=== PATIENT | male | born 1965 | race African-American/Black ===

== ENCOUNTER 2018-10-03 17:29 | Observation (INO) ==
[2018-10-03] MEDS ORDERED: ASPIRIN PO ONE ×2 (17:37→17:49)
[2018-10-03] MEDS ORDERED: NITROGLYCERIN SL ONE (17:50)
--- NOTE | 2018-10-03 17:52 | PROVIDER DOCUMENTATION ---
HPI-Chest Pain - General Chief Complaint: Chest Pain Stated Complaint: CHEST PAIN Time Seen by Provider: 10/03/18 17:45 Source: patient Allergies/Adverse Reactions: Patient Allergies Allergy/AdvReac Type Severity Reaction Status Date / Time No Known Allergies Allergy Verified 05/07/18 06:35 Home Medications: Home Medication List Medication Instructions Recorded Confirmed Last Taken Type Pantoprazole [Protonix] 40 mg PO DAILY@0700 #30 tab 02/20/17 05/07/18 Unknown Rx Metformin [Glucophage] 1,000 mg PO BID 11/18/17 05/07/18 Unknown History ATORVAstatin [Lipitor] 20 mg PO DAILY 11/26/17 05/07/18 Unknown History Amlodipine Besylate 10 mg PO DAILY 11/26/17 05/07/18 Unknown History Ciprofloxacin HCl [Cipro] 500 mg PO BID #20 tab 05/07/18 Unknown Rx Meloxicam [Mobic] 15 mg PO DAILY PRN #30 tab 05/07/18 Unknown Rx - History of Present Illness-CP Nature of Presenting Problem: 52 YOM PRESENTS WITH CP THAT BEGAN YESTERDAY AM. HE DESCRIBES THE PAIN SHARP AND RADIATES TO HIS L ARM CAUSING IT TO FEEL NUMB. HE DENIES ASSOCIATED SYMPTOMS WITH THE PAIN INCLUDING: SOB, N/V, SWEATING, COUGH, FEVER, CHILLS. Location: reports: substernal Chest Pain Radiation: reports: arms (L) Quality of Pain: reports: sharp Severity in ED: moderate Onset/Duration: 24 hours ago (YESTERDAY AM) Timing: still present Context/Activities at Onset: reports: none Modifying Factors: improves with: nothing Associated Symptoms: reports: denies symptoms Nitro Today/Relief: no nitro taken today Aspirin Treatment Today: 325 mg x 1, provided by ED Similar Symptoms Previously?: No Recently Seen Here or By Another Healthcare Provider: No Review of Systems - Adult - REVIEW OF SYSTEMS - ADULT Constitutional: reports: no symptoms reported. denies: see HPI, chills, fever, fatique, night sweats, weight gain, weight loss, other Eyes: reports: no symptoms reported. denies: see HPI, discharge, dry eyes, decreased vision, blurred vision, double vision, eye pain, redness, other Ears, Nose, Mouth & Throat: reports: no symptoms reported. denies: see HPI, ear discharge, ear pain, hearing loss, tinnitus, epistaxis, sinus problem, nose pain, loose teeth, mouth/dental pain, mouth swelling, hoarseness, throat pain, throat swelling, other Cardiovascular: reports: see HPI, chest pain. denies: no symptoms reported, edema, heart murmur, irregular heart rate, orthopnea, palpitations, poor circulation, PND, syncope, other Respiratory: reports: no symptoms reported. denies: see HPI, chronic cough, cough, dyspnea on exertion, excessive sputum production, hemoptysis, pleurisy, shortness of breath, wheezing, other Gastrointestinal: reports: no symptoms reported. denies: see HPI, abdominal pain, hematemesis, constipation, diarrhea, difficulty swallowing, frequent heartburn, nausea, poor appetite, rectal bleeding, vomiting, other Genitourinary: reports: no symptoms reported. denies: see HPI, dysuria, disc harge, frequency, flank pain, frequent UTI's, hematuria, hesitency, incontinence, urinary retention, urgency, other Musculoskeletal: reports: no symptoms reported. denies: see HPI, bone pain, back pain, frequent leg cramps, joint pain, joint swelling, muscle aches, muscle weakness, neck pain, other Integumentary: reports: no symptoms reported. denies: see HPI, hives, hair loss, itching, mole changes, nail changes, rash, skin sores/ulcer, skin t hickening, other Neurological: reports: no symptoms reported. denies: see HPI, ataxia, dizziness/vertigo, headache/migraines, loss of balance, numbness, paresthesia, seizure, slurred speech, syncope, tremors, other Psychiatric: reports: no symptoms reported. denies: see HPI, anxiety, anti- depressant use, alcohol/drug dependence, depression, emotional problems, insomnia, panic attacks, suicidal thoughts, other Endocrine: reports: no symptoms reported. denies: see HPI, change in skin pigment, excessive sweating, goiter, cold intolerance, heat intolerance, increased hunger, increased thirst, polyuria, other Hematologic/Lymphatic: reports: no symptoms reported. denies: see HPI, blood clots, easy bruising, low blood count, lymphedema, prolonged bleeding, swollen lymph nodes, transfusions, other Allergic/Immunologic: reports: no symptoms reported. denies: see HPI, allergic reactions, allergic rhinitis, asthma, eczema, food allergy, frequent infections, hay fever, hives, positive PPD, urticaria, other Past History - Adult - PAST MEDICAL HISTORY-ADULT Review of Records: reports: Old Records Reviewed, Nursing Assessment Review, Social history reviewed & non-contributory. Major Childhood Illnesses: reports: denies history Cardiovascular: reports: HTN Respiratory: reports: denies history Gastrointestinal: reports: GERD, other (liver congestion) Obstetrical/Gynecological: reports: denies history Genitourinary: reports: prostatitis Musculoskeletal: reports: denies history Neurological: reports: denies history Endocrine/Immune: reports: Diabetes Other Conditions: reports: denies history - PRIOR SURGERIES/PROCEDURES Surgical/Procedure History: reports: none - IMMUNIZATION STATUS Childhood Immunizations: See Nurse Assessment Flu Vaccine: See Nurse Assessment - FAMILY HISTORY Family History: reviewed, not pertinent Physical Exam-General - PHYSICAL EXAM-ADULT Initial Vital Signs Reviewed: Yes - CONSTITUTIONAL General Appearance: appears well, alert, no apparent distress - EYES Eyes: PERRL/EOMI - HEAD, EARS, NOSE, MOUTH & THROAT HENMT: normocephalic/atraumatic, moist mucous membranes, normal ENT inspection - NECK Neck: non-tender, full range of motion, supple - RESPIRATORY Respiratory: chest non-tender, lungs clear, normal breath sounds, no pleuratic chest pain, no respiratory distress, no accessory muscle use - CARDIOVASCULAR Cardiovascular: normal peripheral pulses, regular rate, rhythm, no edema, no gallop, no JVD, no murmur - GASTROINTESTINAL (ABDOMEN) Abdominal Exam: normal bowel sounds, non tender, soft - LYMPHATIC Lymphatic: no adenopathy - MUSCULOSKELETAL Back Exam: normal inspection, no CVA tenderness, no vertebral tenderness Extremity: normal range of motion, non-tender, normal gait, normal inspection - SKIN Integumentary: normal color, normal turgor, warm/dry - NEUROLOGIC Neurologic: grossly normal - PSYCHIATRIC Psych/Mental Status: normal mood/affect, oriented x 3 - HEART Score HEART Score: History: Moderately Suspicious HEART Score: ECG: Normal HEART Score: Age: 45-65 Years HEART Score: Risk Factors for Atherosclerotic Disease: > or = 3 Risk Factors or History of Atherosclerotic Disease HEART Score: Troponin: < or = Normal Limit Total HEART Score:: 4 Progress - PLAN OF CARE/RESULTS Progress/Plan/Lab Results: Vital Signs - 8 hr 10/03/18 17:36 10/03/18 18:09 Temperature 98 F 98.7 F Pulse Rate 85 75 Respiratory Rate 18 19 Blood Pressure 135/90 137/85 O2 Sat by Pulse Oximetry 96 100 Laboratory Results - last 24 hr 10/03/18 10/03/18 10/03/18 17:56 17:56 17:56 WBC RBC Hgb Hct MCV MCH MCHC RDW Std Deviation Plt Count MPV Immature Gran % (Auto) Neut % (Auto) Lymph % (Auto) [place] % (Auto) Eos % (Auto) Baso % (Auto) Immature Gran # (Auto) Neut # (Auto) Lymph # (Auto) [place] # (Auto) Eos # (Auto) Baso # (Auto) PT INR PTT (Actin FS) D-Dimer, Quantitative Sodium 140 Potassium 4.2 Chloride 103 Carbon Dioxide 24 L Anion Gap 14 BUN 14 Creatinine 1.1 Estimated GFR/1.73 m2 > 60 BUN/Creatinine Ratio 13 Glucose 160 H Calculated Osmolality 283 Calcium 9.4 Magnesium Creatine Kinase 88 Troponin T < 0.010 [id number]-[id number] Pept 10/03/18 10/03/18 10/03/18 17:56 17:56 17:56 WBC 6.95 RBC 5.12 Hgb 15.6 Hct 46.1 MCV 90.0 MCH 30.5 MCHC 33.8 RDW Std Deviation 13.3 Plt Count 246 MPV 10.2 Immature Gran % (Auto) 0.3 Neut % (Auto) 61.5 Lymph % (Auto) 30.6 [place] % (Auto) 6.3 Eos % (Auto) 1.0 Baso % (Auto) 0.3 Immature Gran # (Auto) 0.02 Neut # (Auto) 4.27 Lymph # (Auto) 2.13 [place] # (Auto) 0.44 Eos # (Auto) 0.07 Baso # (Auto) 0.02 PT 12.7 INR 0.91 PTT (Actin FS) 30.9 D-Dimer, Quantitative 0.29 Sodium Potassium Chloride Carbon Dioxide Anion Gap BUN Creatinine Estimated GFR/1.73 m2 BUN/Creatinine Ratio Glucose Calculated Osmolality Calcium Magnesium Creatine Kinase Troponin T Naq-Q-Gohzujbelen Pept 10/03/18 10/03/18 17:56 17:56 WBC RBC Hgb Hct MCV MCH MCHC RDW Std Deviation Plt Count MPV Immature Gran % (Auto) Neut % (Auto) Lymph % (Auto) [place] % (Auto) Eos % (Auto) Baso % (Auto) Immature Gran # (Auto) Neut # (Auto) Lymph # (Auto) [place] # (Auto) Eos # (Auto) Baso # (Auto) PT INR PTT (Actin FS) D-Dimer, Quantitative Sodium Potassium Chloride Carbon Dioxide Anion Gap BUN Creatinine Estimated GFR/1.73 m2 BUN/Creatinine Ratio Glucose Calculated Osmolality Calcium Magnesium 1.5 Creatine Kinase Troponin T Ufi-[id number]-Povjeymaigm Pept 72 Orders Category Date Time Status Saline Loc NOW Care 10/03/18 17:32 Active CHEST-2 VIEWS [RAD] Stat Exams 10/03/18 17:32 Completed BASIC METABOLIC PANEL [CHEM] Stat Lab 10/03/18 17:56 Completed CBC WITH ELECTRONIC DIFF [HEME] Stat Lab 10/03/18 17:56 Completed CK PROFILE [SP CHEM] Stat Lab 10/03/18 17:56 Completed D-DIMER [COAG] Stat Lab 10/03/18 17:56 Completed MAGNESIUM [CHEM] Stat Lab 10/03/18 17:56 Completed PRO B-NATRIURETIC PEPTIDE Stat Lab 10/03/18 17:56 Completed PROTIME WITH INR [COAG] Stat Lab 10/03/18 17:56 Completed PTT [COAG] Stat Lab 10/03/18 17:56 Completed TROPONIN T Stat Lab 10/03/18 17:56 Completed Aspirin Med 10/03/18 17:37 Discontinued 325 mg PO NOW ONE Aspirin Med 10/03/18 17:49 Discontinued 325 mg PO NOW ONE Magnesium Sulfate 2 gm/S.w.i. Med 10/03/18 18:37 Discontinued 2 gm in 50 ml IV NOW Nitroglycerin Sl [Nitroglycerin] Med 10/03/18 17:50 Discontinued 0.4 mg SL NOW ONE EKG [EKG] Stat Ther 10/03/18 17:32 Ordered 1835: PT REPORTS CP STOPPED WITH ONE DOSE OF NTG. HE IS RELUCTANT TO STAY IN PATIENT FOR FURTHER W/U. HE REQUEST TIME TO THINK ABOUT IT. Result Diagrams: 10/03/18 17:56 10/03/18 17:56 - EKG 1 Time of EKG reading by physician:: 17:44 EKG Read and Signed by:: Franklyn Bonilla EKG Interpretation (*Must complete 3 of following elements*): Abnormal Rate: 74 Rhythm: NSR [place]: normal QRS: normal [place] Interval: normal ST Wave: non-specific ST changes Prior EKG Comparison: unchanged from prior, no prior EKG - XRAY 1 XRAY Study: Chest Impression: Normal, See EMR Report (CHEST-2 VIEWS - 10/03/2018 INDICATION: CP COMPARISON: 05/07/2018 FINDINGS: The lungs are normally expanded and clear. Heart size and mediastinal contours are normal. No pneumothorax or pleural effusion. Small calcified granuloma in the left midlung. IMPRESSION: Negative exam.) - CONSULTS/PCP/HOSPITALIST Notification #1 *Consult/PCP/Hospitalist*: DR DESOUZA Time Discussed: 18:54 Consult Disposition: Admit Departure - Departure Date of Disposition Decision: 10/03/18 Time of Disposition Decision: 18:53 DIAGNOSIS: Chest pain Disposition: ADMITTED INPATIENT 09 Certified Medical Emergency: Emergent Condition: Stable Referrals and Follow-Ups: None,PCP [Primary Care Provider] - - Critical Care Note This patient required my direct & personal management of CC.: No Attestation - Physician/ SE Attestation Patient care was provided by Advanced Practice Provider:: Yes Advanced Practice Provider:: Hansa Maloney Advanced Practice Provider documentation review:: The Mid-level provider documentation, treatment plan and medical decision making was reviewed by the physician who agrees with all treatment and medical decision making by the MLP. The physician spent face to face time with patient:: No Advanced Practice Provider documentation review:: Supervising physician onsite and consulted in the evaluation and care of this patient. The physician did not have a face to face encounter with the patient.
[2018-10-03 18:11] LABS: BASO# 0.02 X1000 (0.0-0.2); BASO% 0.3 % (0.0-0.8); EOS# 0.07 X1000 (0.0-0.7); HEMATOCRIT 46.1 % (42.0-52.0); HEMOGLOBIN 15.6 g/dL (14.0-18.0); IMM GRAN# 0.02 X1000 (0.0-0.04); IMM GRAN% 0.3 % (0.0-0.5); LYMPH# 2.13 X1000 (1.2-3.4); LYMPH% 30.6 % (20.5-51.1); MCH 30.5 PG (27-31); MCHC 33.8 g/dL (33-37); MONO# 0.44 X1000 (0.11-0.59); MONO% 6.3 % (1.7-9.3); MPV 10.2 FL (7.4-10.4); NEUT# 4.27 X1000 (1.4-6.5); NEUT% 61.5 % (42.2-75.2); PLT 246 X1000 (130-400); RBC 5.12 XMIL (4.7-6.1); RDW 13.3 % (11.5-14.5); WBC 6.95 X1000 (4.8-10.8)
--- NOTE | 2018-10-03 18:17 | Diag Imaging Result Doc PS360 ---
CHEST-2 VIEWS - 10/03/2018 INDICATION: CP COMPARISON: 05/07/2018 FINDINGS: The lungs are normally expanded and clear. Heart size and mediastinal contours are normal. No pneumothorax or pleural effusion. Small calcified granuloma in the left midlung. IMPRESSION: Negative exam. Electronically signed by Werner Marshall 10/03/2018 6:15 PM
[2018-10-03 18:21] LABS: INR 0.91; PROTIME 12.7 Seconds (11.0-16.0)
[2018-10-03 18:22] LABS: PTT 30.9 Seconds (22.3-41.8)
[2018-10-03] MEDS ORDERED: MAGNESIUM SULFATE 2 GM/S.W.I. 2 GM/50 ML IVPB IV ONE (18:37)
[2018-10-03 18:49] LABS: AGAP 14; BUN 14 mg/dL (8-22); CALCIUM 9.4 mg/dL (8.8-10.2); CHLORIDE 103 mmol/L (98-107); COSMO 283; CREATININE 1.1 mg/dL (0.7-1.2); ESTIMATED GFR > 60; GLUCOSE 160 mg/dL (70-104); POTASSIUM 4.2 mmol/L (3.5-5.1); SODIUM 140 mmol/L (136-145); TCO2 24 mmol/L (25-35)
[2018-10-03] MEDS ORDERED: ZOFRAN IV PRN (18:55)
[2018-10-03] MEDS ORDERED: MORPHINE IV PRN (18:55)
--- NOTE | 2018-10-03 19:56 | EKG Report ---
Test Performed on : 10/03/2018 5:34:42 PM Test Reason : CP Blood Pressure : / mmHG Vent. Rate : 074 BPM Atrial Rate : 074 BPM P-R Int : 162 ms QRS Dur : 070 ms QT Int : 372 ms P-R-T Axes : 032 009 011 degrees QTc Int : 412 ms Normal sinus rhythm. Low voltage QRS Nonspecific T wave abnormality Abnormal ECG When compared with ECG of 15-APR-2018 06:24, No significant change was found Unconfirmed Result
[2018-10-04] MEDS: NORVASC PO SCH (12:24)
--- NOTE | 2018-10-04 15:21 | HISTORY AND PHYSICAL ---
CHIEF COMPLAINT: Chest pain x24 hours. HISTORY OF PRESENT ILLNESS: This is a 52-year-old gentleman who presented to the emergency room complaining of left-sided chest pain that started approximately 24 hours prior to presentation. He describes this as a sharp pain that is substernal. He states it radiates to his left arm, causes his left arm to feel numb. He has during these episodes, he has no change in motor function. No weakness. He denies any recent injury. He denied any palpitations, shortness of breath, nausea, vomiting. PAST MEDICAL HISTORY: Diabetes mellitus type 2, gastroesophageal reflux disease, hypertension. PAST SURGICAL HISTORY: Denies. SOCIAL HISTORY: He quit smoking. He drinks 2 to 3 beers a day and liquor on weekends. He does drink daily. ALLERGIES: No known drug allergies. HOME MEDICATIONS: A list will be obtained by the nursing staff and we will review and once we review we will restart as appropriate. REVIEW OF SYSTEMS: Discussed with patient with pertinent positives stated in the HPI. He denied any syncope, dizziness, any palpitations, any cough, fever, chills, shortness of breath, PND, orthopnea, recent weight loss or weight gain, night sweats, any nausea, vomiting, diarrhea, constipation, black or bloody vomitus or stools, any hematuria, dysuria, frequency, urgency. PHYSICAL EXAMINATION: GENERAL: This is a 52-year-old gentleman who is sitting up in the bed in no distress. VITAL SIGNS: Blood pressure is 135/88 with a heart rate of 66, respirations are 18, temperature is 98.2 degrees with room air saturations 100%. EYES: Pupils equal, round, react to light. EOMs are intact. Sclerae anicteric. HEENT: Head is normocephalic, atraumatic. Mucous membranes are moist. NECK: Supple with trachea midline. CARDIOVASCULAR: Regular rate and rhythm. S1 and S2 appreciated. No murmur. EXTREMITIES: He has no lower extremity edema with peripheral pulses palpable x4 extremities. Calves are nontender bilateral. PULMONARY: Breath sounds are clear. No increased work of breathing noted. Chest rises and falls symmetrically with respiration. Chest wall is nontender to palpation. GASTROINTESTINAL: Abdomen is soft, nontender, nondistended. Bowel sounds in all 4 quadrants. GENITOURINARY: He has no CVA or suprapubic tenderness. NEUROLOGIC: Alert and oriented x3. SKIN: Warm and dry. LABS: WBC is 6.9 with hemoglobin 15.6, hematocrit 46.1, and platelets 246,000. INR is 0.91 with a D-dimer of 0.29. Sodium 140, potassium 4.2, BUN 14, creatinine 1.1 with a glucose of 160. Magnesium is 1.5. Troponin is negative on multiple occasions. EKG revealed sinus rhythm at a rate of 74. Chest x-ray revealed a negative exam. Lungs are normally expanded and clear. Heart size and mediastinal contours are normal. No pneumothorax or pleural effusion. ASSESSMENT AND PLAN: 1. Chest pain. The patient has ruled out by enzymes. We will continue monitoring on telemetry. 2. Diabetes mellitus type 2. We will continue his home medications, trend his blood sugars. 3. Hypertension. Continue his Norvasc and trend vital signs. 4. Gastroesophageal reflux disease. We will continue Protonix. 5. Arthritis. continue his Mobic per his primary care physician. Further treatments pending hospital course. Dictated by RAZA Hubbard for Jose Cruz Falcon MD cc: RAZA Hubbard MD [facility]
[2018-10-04] MEDS: GLUCOPHAGE PO SCH (16:32)
--- NOTE | 2018-10-04 17:39 | HISTORY AND PHYSICAL ---
HISTORY AND PHYSICAL ADDENDUM: Patient seen and examined. Full note dictated and discussed with nurse practitioner. Patient presented to the hospital with chest pain that started yesterday morning. Noted that it was sharp, radiated to his left arm, caused his left arm to feel numb. Denied any shortness of breath, nausea, sweating. Denies any fevers, chills. States that the pain is worse when he moves his left upper extremity. PLAN: We will admit patient to the hospital. Rule out [place]. His first set of enzymes have been negative. Hopefully, he will be able to ambulate today and go home if he is pain-free. cc: Jose Cruz Falcon MD
[2018-10-04] MEDS ORDERED: LIPITOR PO SCH (21:00)
[2018-10-05] MEDS ORDERED: PROTONIX PO SCH (07:00)
[2018-10-05] MEDS: GLUCOPHAGE PO SCH (09:18)
[2018-10-05] MEDS: NORVASC PO SCH (09:18)
[2018-10-05 10:55] VITALS: BP 142/86
--- NOTE | 2018-10-06 05:44 | DISCHARGE SUMMARY ---
ADMISSION DATE: 10/03/2018 DISCHARGE DATE: 10/05/2018 DISCHARGE DIAGNOSIS: 1. Chest pain, resolved. 2. Morbid obesity. 3. Type 2 diabetes. 4. Chronic reflux. 5. Hypertension. CONSULTATIONS: None. PROCEDURES: None. BRIEF HOSPITAL COURSE: Patient is a 52-year-old male who presented to the hospital with chest pain. It radiates in his left arm although thankfully did not get any diaphoresis or other cardiac type symptoms. On discharge, patient is awake, alert. He is ambulating without any difficulty. His chest pain has resolved and therefore we will discharge home. DISPOSITION: Patient will be discharged home. Discussed with him that he needs to follow up with his primary care. Certainly needs to consider having outpatient stress test to allow this to occur. Currently, his chest pain has resolved though he does have risk factors to include male, over the age of 45, diabetes, hypertension and obesity. Discussed with the patient that he does not need to smoke and certainly should consider decreasing his alcohol intake. We will discharge him home. No changes made in his home medications. Continue to eat a healthy heart diet. Continue to exercise. Further orders as needed. cc: Jose Cruz Falcon MD MTDD
== END 2018-10-05 12:55 | disposition home or self-care (01) ==
LOC: P.ED 17:29 → P.MEDSURG 17:29
PROVIDERS: ATTEND Family Medicine